=== PATIENT | male | born 1995 | race Caucasian/White ===

== ENCOUNTER 2021-07-04 14:41 | Outpatient (REF) | payer MEDICAID, SELFPAY ==
[2021-07-04 15:31] LABS: COVID-19 Test Negative (Negative)
== END 2021-07-04 14:42 | disposition home or self-care (01) ==
LOC: HO.LAB 14:41
PROVIDERS: Visit Provider Internal Medicine
DX: Z20.822 Contact with and (suspected) exposure to COVID-19 (principal)
CPT/HCPCS: 36415; 87635; C9803

== ENCOUNTER 2023-05-25 07:45 | Emergency (ER) | payer MEDICAID, SELFPAY ==
--- NOTE | ~2023-05-25 | XR_ITS ---
EXAMINATION: XR ABDOMEN KUB CLINICAL INDICATION: Constipation COMPARISON: None available. TECHNIQUE: AP view of the abdomen. FINDINGS: No dilated loops of bowel visualized. Mild to moderate fecal loading throughout the colon greatest at the hepatic and splenic flexures. Osseous structures are intact. Visualized portions of the lower chest are unremarkable. Soft tissues are unremarkable. XR/XR KUB IMPRESSION: 1. No dilated loops of bowel visualized. 2. Mild to moderate fecal loading throughout the colon greatest at the hepatic and splenic flexures.
[2023-05-25 07:52] VITALS: BP 140/81; PULSE 84; RESP 20; TEMP 36.2; O2SAT 99; BMI 22.2
--- NOTE | 2023-05-25 09:43 | ED_ITS ---
HPI - GI Bleed General Chief complaint: Abdominal Pain Stated complaint: Rectal bleed/Vomiting Time Seen by Provider: 05/25/23 09:38 Source: patient and family Mode of arrival: ambulatory Limitations: no limitations History of Present Illness HPI Narrative: 27 yo male with hx of opiate use disorder who just started suboxone 1 month ago - reports worsening constipation x 1 week last BM 5 days ago he has never had abdominal surgery before. He is passing gas. He has tried miralax and even mag citrate but cannot keep the mag citrate down. He tried enema but no relief. HE noted he is pushing so hard he has anal pressure and pain and noted some rectal bleeding this has never happened before. He states I need to get this poop out. MD complaint: other (constipation, rectal bleeding) Onset (ago): day(s) (5) Pain Consistency: intermittent Severity: moderate Relieving factors: eating Exacerbating factors: none Context: other (opiate use) Associated symptoms: nausea and other (anxiety) Treatments Prior to Arrival: OTC meds Related Data Previous Rx's Medication Instructions Recorded docusate sodium 100 mg capsule 100 mg PO BID constipation #30 caps 05/25/23 (Colace) lactulose 20 gram/30 mL oral 20 g (30 mL) PO DAILY PRN 05/25/23 solution constipation #1,200 mL sennosides 8.6 mg tablet (senna) 8.6 mg PO BEDTIME PRN constipation 05/25/23 #30 tabs Allergies Allergy/AdvReac Type Severity Reaction Status Date / Time No Known Allergies Allergy Verified 05/25/23 07:51 Review of Systems 2 Review of Systems: Constitutional : No Weight loss, No Fever, No Chills ENT/Mouth : No sore throat, No Rhinorrhea Eyes: No Swelling, No Redness Cardiovascular : No Chest Pain, No SOB, NoEdema Respiratory : No Cough, No Sputum, No Wheezing Gastrointestinal : Positive Nausea, no Vomiting, no Diarrhea, positive abdominal Pain, No Hematochezia, No Melena, pos constipation Genitourinary : No Dysuria, No Urinary Frequency, No Hematuria, No Urgency Musculoskeletal : No joint pain, No Myalgias, No Joint Swelling Skin : No Skin Lesions, No rash Neuro : No Weakness, No Numbness, No Dizziness, No Headache Psych : No Anxiety/Panic, No Depression All other systems reviewed and are negative. [facility] Past Medical History Attestation statement: The following information was validated with the patient. Medical History Opiate use Social History Social History Alcohol intake: former Patient Tobacco Use Status: Tobacco use Unknown Smoked in Last 30 Days: Yes Use of substances other than those prescribed or required for medical reasons: No Substance Use Type: Former Substance User Advance Directives: No Physical Exam 2 Vital Signs: Vital Signs: Last Vital Signs Temp 97.2 F 05/25/23 07:52 Pulse 71 05/25/23 10:32 Resp 18 05/25/23 10:32 BP 103/48 L 05/25/23 10:32 Pulse Ox 98 05/25/23 10:32 O2 Del Method Room Air 05/25/23 10:32 BMI result Body Mass Index 22.2 Appearance: Alert. Oriented X3. No acute distress. Eyes: Pupils equal, round and reactive to light. ENT: Pharynx normal. Neck: Normal inspection. Neck supple. CVS: Normal heart rate and rhythm. Pulses normal. Respiratory: No respiratory distress. Breath sounds normal. Abdomen: Soft and nontender. Rectal: hard stool felt in vault, internal hemorrhohids felt, no fissure seen, he has no signs of redness or inflammation, he cannot tolerate the exam. no blood seen stool is brown Skin: Skin warm and dry. Normal skin color. Normal skin turgor. Extremities: No lower extremity edema. No calf ttp Neuro: Oriented X 3. No motor deficit. No sensory deficit. Medications Administered Discontinued Medications Generic Name Dose Route Start Last Admin Trade Name Freq PRN Reason Stop Dose Admin Sodium Chloride 1,000 mls @ 999 mls/hr 05/25/23 10:00 05/25/23 11:39 Ns IV 05/25/23 11:00 Infused .Q1H1M ARTURO Infusion Lactulose 20 gm 05/25/23 09:53 05/25/23 10:21 Lactulose 20 Gm/30 Ml Solution PO 05/25/23 09:54 20 gm ONCE ONE Administration Nicotine Polacrilex 4 mg 05/25/23 10:10 05/25/23 10:28 Nicotine Polacrilex 2 Mg Gum BUCCAL 4 mg Q1H PRN Administration Nicotine Cravings Nitroglycerin 0.25 inch 05/25/23 09:53 05/25/23 10:22 Nitroglycerin 2 % Oint 1 Gm Packet TRANSDERMA 05/25/23 09:54 0.25 inch ONCE ONE Administration Ondansetron HCl 4 mg 05/25/23 09:53 05/25/23 10:20 Ondansetron Hcl 4 Mg/2 Ml Vial IVPUSH 05/25/23 09:54 4 mg ONCE ONE Administration Sodium Biphosphate/Sodium Phosphate 133 ml 05/25/23 09:53 05/25/23 10:21 Sodium Phosphate,[place]-Dibasic 133 Ml Enema NM 05/25/23 09:54 133 ml ONCE ONE Administration Medical Decision Making Medical Decision Making [facility] Narrative: 27 yo male with hx of opiate use disorder newly on suboxone x 1 month now with constipation and pushing so hard he reports anal pain and rectal bleeding - on exam has stool in rectal vault but will not allow me to fully examine him his sphincter is tight, his VS are stable and he has no fevers or abdominal pain. He is very anxious. At this time he has no signs of proctitis. I am going to apply topical thin nitro place IV line give nitro given lactulose and zofran. If he tolerates enema. No known hx of infl bowel disease, no prior surgery to suggest obstruction, Differential Diagnosis Differential Diagnoses: The differential diagnosis associated with the presentation includes constipation, opiate induced constipation, rectal impaction Admission/Observation Consideration of admission/observation: Escalation of care including admission/observation considered + bowel movement feels much better stable for DC nitro was wiped off Lab Data [facility] Lab Attestation statement: I reviewed the patient's lab results. 05/25/23 10:04 05/25/23 10:04 Labs: Lab Results 05/25/23 Range/Units 10:04 WBC 13.9 H (4.8-10.8) X10*3/uL RBC 4.58 L (4.60-5.80) X10*6/uL Hgb 13.6 L (14.0-18.0) g/dl Hct 39.8 L (42.0-52.0) % MCV 86.9 (80.0-98.0) fL MCH 29.7 (27.0-33.0) pg MCHC 34.2 (31.0-36.0) g/dl RDW 12.3 (11.0-16.0) % Plt Count 284 (160-400) X10*3/uL MPV 9.4 (9.4-12.4) fL Immature Gran % (Auto) 0.4 (0.0-0.4) % Neut % (Auto) 83.2 H (45-73) % Lymph % (Auto) 8.9 L (20-40) % [place] % (Auto) 6.6 (2-11) % Eos % (Auto) 0.5 (0-4) % Baso % (Auto) 0.4 (0-2) % Lymph # (Auto) 1.2 (1.2-4.9) X10*3/uL [place] # (Auto) 0.9 (0.1-1.2) X10*3/uL Eos # (Auto) 0.1 (0.0-0.4) X10*3/uL Baso # (Auto) 0.1 (0.0-0.2) X10*3/uL Abs Immat Gran (auto) 0.05 H (0.00-0.03) X10*3/uL Absolute Neuts (auto) 11.6 H (2.0-8.3) x10*3/uL Absolute Nucleated RBC 0.000 (0.0-0.012) X10*3/uL Nucleated RBC % (auto) 0.0 (0.0-0.2) /100WBC Sodium 141 (135-145) mmol/L Potassium 4.0 (3.3-5.1) mmol/L Chloride 105 (96-108) mmol/L Carbon Dioxide 26 (22-29) mmol/L Anion Gap 14 (12-20) BUN 15 (9-16) mg/dL Creatinine 0.84 (0.5-1.4) mg/dL Estim Creat Clear Calc 122.4 Estimated GFR > 60 Random Glucose 101 (60-115) mg/dL Calcium 10.3 H (8.4-10.2) mg/dL Magnesium 1.9 (1.6-2.6) mg/dL Independent Interpretation I performed an independent interpretation of an: Plain X-Ray (constipation) Radiology Impression Discussion of test interpretation with radiology: I have reviewed the radiologist's reading. Independent Historian Clinical information obtained from an independent historian. History obtained from or confirmed by: Other (brother) Prescription Management I considered prescription management with: Other Discharge Plan Discharge Clinical Impression: Constipation Qualifiers: Constipation type: drug induced constipation Qualified Code(s): K59.03 - Drug induced constipation Patient Disposition: Home, Self-Care Instructions: Constipation (ED) Additional Instructions: return for pain, fevers, vomiting, inability to pass gas, worsening bleeding or any other concerns. avoid aspirin for 2 weeks. take the prescribed bowel regimen for one week then take docusate twice a day while on suboxone. Prescriptions: New sennosides [senna] 8.6 mg tablet 8.6 mg PO BEDTIME PRN (Reason: constipation) Qty: 30 0RF docusate sodium [Colace] 100 mg capsule 100 mg PO BID Qty: 30 0RF lactulose 20 gram/30 mL solution 20 g PO DAILY PRN (Reason: constipation) Qty: 1200 0RF Interventions: ED Discharge Assessment Last Done: 05/25/23 11:40 Discharge Date/Time: 05/25/23 11:54
--- NOTE | 2023-05-25 09:55 | PC.NURSE ---
chaperoned dr rteviño during a rectal exam
[2023-05-25] MEDS: 0.9 % Sodium Chloride 1,000 ML 999 ML IV (10:05)
[2023-05-25 10:14] LABS: MANUAL DIFF FLAG NO
[2023-05-25 10:18] LABS: Basophils Absolute Auto 0.1 X10*3/uL (0.0-0.2); Basophils Percent Auto 0.4 % (0-2); Eosinophils Absolute Auto 0.1 X10*3/uL (0.0-0.4); Eosinophils Percent Auto 0.5 % (0-4); Hematocrit 39.8 % (42.0-52.0); Hemoglobin 13.6 g/dl (14.0-18.0); Imm Gran Abs Auto 0.05 X10*3/uL (0.00-0.03); Imm Gran Pct Auto 0.4 % (0.0-0.4); Lymphocytes Absolute Auto 1.2 X10*3/uL (1.2-4.9); Lymphocytes Percent Auto 8.9 % (20-40); Mean Corpuscular HGB Conc 34.2 g/dl (31.0-36.0); Mean Corpuscular Hemoglobin 29.7 pg (27.0-33.0); Mean Corpuscular Volume 86.9 fL (80.0-98.0); Mean Platelet Volume 9.4 fL (9.4-12.4); Monocytes Absolute Auto 0.9 X10*3/uL (0.1-1.2); Monocytes Percent Auto 6.6 % (2-11); Neutrophils Absolute Auto 11.6 x10*3/uL (2.0-8.3); Neutrophils Percent Auto 83.2 % (45-73); Platelet Count 284 X10*3/uL (160-400); Red Blood Count 4.58 X10*6/uL (4.60-5.80); Red Cell Distribution Width 12.3 % (11.0-16.0); White Blood Count 13.9 X10*3/uL (4.8-10.8)
[2023-05-25] MEDS: ondansetron HCL 4 MG/2 ML VIAL IVPUSH (10:20)
[2023-05-25] MEDS: Lactulose 20 GM/30 ML SOLUTION PO (10:21)
[2023-05-25] MEDS: Sodium Phosphate,Mono-Dibasic 133 ML ENEMA PR (10:21)
[2023-05-25] MEDS: Nitroglycerin 2 % Oint 1 GM Packet 0.25 INCH TRANSDERMA (10:22)
[2023-05-25] MEDS: Nicotine Polacrilex 2 MG GUM 4 MG BUCCAL (10:28)
[2023-05-25 10:32] VITALS: BP 103/48; PULSE 71; RESP 18; O2SAT 98
[2023-05-25 10:35] LABS: Anion Gap 14 (12-20); Blood Urea Nitrogen 15 mg/dL (9-16); Calcium 10.3 mg/dL (8.4-10.2); Carbon Dioxide 26 mmol/L (22-29); Chloride 105 mmol/L (96-108); Creatinine Clr Calc Pharmacy 122.4; Estimated Glomerular Filt Rate > 60; Glucose Random 101 mg/dL (60-115); Magnesium 1.9 mg/dL (1.6-2.6); Sodium 141 mmol/L (135-145)
--- NOTE | 2023-05-25 11:21 | PC.NURSE ---
Patient reports having multiple large BM`s, states still feels like he may have to go again but reports pain has improved
== END 2023-05-25 11:54 | disposition home or self-care (01) ==
PROVIDERS: Emergency Provider Emergency Medicine
DX: K59.03 Drug induced constipation (principal); K62.5 Hemorrhage of anus and rectum; R11.2 Nausea with vomiting, unspecified; F41.9 Anxiety disorder, unspecified; Z79.899 Other long term (current) drug therapy
CPT/HCPCS: 36415; 74018; 80048; 83735; 85025; 96361; 96374; 99284; J2405